=== PATIENT | female | born 1985 | race Caucasian/White ===

== ENCOUNTER 2017-05-18 11:43 | Emergency (ER) | payer BC ==
[~2017-05-18] VITALS: Ht 170.2 cm; Wt 137.0 kg
[2017-05-18 11:45] VITALS: BP 148/71
[2017-05-18] MEDS ORDERED: NAPROSYN500 MG PO (12:08)
== END 2017-05-18 14:15 | disposition home or self-care (01) ==
LOC: ER 11:43
DX: R60.0 Localized edema (principal); R20.2 Paresthesia of skin; F41.9 Anxiety disorder, unspecified; F17.210 Nicotine dependence, cigarettes, uncomplicated; F10.99 Alcohol use, unspecified with unspecified alcohol-induced disorder; Z88.1 Allergy status to other antibiotic agents